=== PATIENT | male | born 1990 | race American Indian/Alaskan Native ===

== ENCOUNTER 2016-06-28 08:11 | Emergency (ER) | payer SELFPAY ==
[2016-06-28 08:25] VITALS: BP 117/77
[2016-06-28] MEDS ORDERED: DELTASONE PO ONE (09:46)
[2016-06-28] MEDS ORDERED: DUONEB 0.5 MG-3 MG/3 ML SOLN IH ONE ×2 (09:46→10:17)
--- NOTE | 2016-06-28 09:47 | Emergency Department Report ---
ED Asthma HPI - General Chief Complaint: Adult Asthma Stated Complaint: WHEEZING/SOB/PHLEM Time Seen by Provider: 06/28/16 09:45 Source: patient Mode of arrival: Ambulatory Limitations: No Limitations - History of Present Illness Initial Comments: 26-year-old male past medical history smoker, asthma presents with complaint of 2 days of wheezing. Patient states he has had slightly yellowish greenish sputum, denies fever or chills. speaking in full sentences, patient has audible wheezing. Denies any chest pain, no palpitations, states he feels chest tightness consistent with prior episodes of asthma. Patient states it has been a long time since he was hospitalized for asthma. Patient states he does not currently have an albuterol inhaler. MD Complaint: wheezing Onset/Timin -: days(s) Asthma History: history of prior ED visit Severity: mild Context: recent URI, ran out of meds Associated Symptoms: productive cough Treatments Prior to Arrival: inhaled bronchodilator - Related Data Previous Rx's Medication Instructions Recorded Last Taken Type Amoxicillin/K Clav Tab [Augmentin 1 tab PO Q12HR #20 tab 12/14/15 Unknown Rx 875 mg] Fluticasone [Flonase] 1 spray NS QDAY #1 bottle 12/14/15 Unknown Rx predniSONE [Deltasone] 50 mg PO QDAY #5 tab 12/14/15 Unknown Rx ALBUTEROL Inhaler [ProAir HFA 2 puff IH QID PRN #1 inhalation 06/28/16 Unknown Rx Inhaler] Azithromycin [Zithromax Z-HERNANDEZ] 250 mg PO QDAY #6 tablet 06/28/16 Unknown Rx predniSONE [Deltasone] 40 mg PO QDAY #10 tab 06/28/16 Unknown Rx Allergies Allergy/AdvReac Type Severity Reaction Status Date / Time No Known Allergies Allergy Verified 12/14/15 07:52 ED Review of Systems ROS: Stated complaint: WHEEZING/SOB/PHLEM Other details as noted in HPI Constitutional: denies: chills, fever Eyes: denies: eye pain, eye discharge, vision change ENT: denies: ear pain, throat pain Respiratory: wheezing. denies: cough, shortness of breath Cardiovascular: denies: chest pain, palpitations Endocrine: no symptoms reported Gastrointestinal: denies: abdominal pain, nausea, diarrhea Genitourinary: denies: urgency, dysuria Musculoskeletal: denies: back pain, joint swelling, arthralgia Skin: denies: rash, lesions Neurological: denies: headache, weakness, paresthesias Psychiatric: denies: anxiety, depression Hematological/Lymphatic: denies: easy bleeding, easy bruising ED Past Medical Hx - Past Medical History Previous Medical History?: Yes Hx Asthma: Yes - Surgical History Past Surgical History?: No - Social History Smoking Status: Current Every Day Smoker Substance Use Type: Alcohol, Prescribed - Medications Home Medications: Home Medications Medication Instructions Recorded Confirmed Last Taken Type Amoxicillin/K Clav Tab [Augmentin 1 tab PO Q12HR #20 tab 12/14/15 Unknown Rx 875 mg] Fluticasone [Flonase] 1 spray NS QDAY #1 bottle 12/14/15 Unknown Rx predniSONE [Deltasone] 50 mg PO QDAY #5 tab 12/14/15 Unknown Rx ALBUTEROL Inhaler [ProAir HFA 2 puff IH QID PRN #1 inhalation 06/28/16 Unknown Rx Inhaler] Azithromycin [Zithromax Z-HERNANDEZ] 250 mg PO QDAY #6 tablet 06/28/16 Unknown Rx predniSONE [Deltasone] 40 mg PO QDAY #10 tab 06/28/16 Unknown Rx ED Physical Exam - General Limitations: No Limitations General appearance: alert, in no apparent distress - Head Head exam: Present: atraumatic, normocephalic - Eye Eye exam: Present: normal appearance, PERRL, EOMI - ENT ENT exam: Present: mucous membranes moist - Neck Neck exam: Present: normal inspection - Respiratory Respiratory exam: Present: wheezes (patient wheezing bilaterally on auscultation ). Absent: respiratory distress - Cardiovascular Cardiovascular Exam: Present: regular rate, normal rhythm. Absent: systolic murmur, diastolic murmur, rubs, gallop - GI/Abdominal GI/Abdominal exam: Present: soft, normal bowel sounds - Rectal Rectal exam: Present: deferred - Extremities Exam Extremities exam: Present: normal inspection - Back Exam Back exam: Present: normal inspection - Neurological Exam Neurological exam: Present: alert, oriented X3 - Psychiatric Psychiatric exam: Present: normal affect, normal mood - Skin Skin exam: Present: warm, dry, intact, normal color. Absent: rash ED Course Vital Signs 06/28/16 06/28/16 06/28/16 08:22 10:04 10:05 Temperature 98.4 F Pulse Rate 65 Pulse Rate [ 73 72 Anterior Bilateral Throughout] Respiratory 20 Rate Respiratory 17 19 Rate [Anterior Bilateral Throughout] Blood Pressure 117/77 O2 Sat by Pulse 96 Oximetry 06/28/16 10:29 Temperature Pulse Rate Pulse Rate [ 72 Anterior Bilateral Throughout] Respiratory Rate Respiratory 19 Rate [Anterior Bilateral Throughout] Blood Pressure O2 Sat by Pulse Oximetry ED Medical Decision Making - Medical Decision Making A/P: Reactive airway disease, asthma exacerbation 1-refill on albuterol inhaler, 5 day course of prednisone 2-as patient is currently a smoker with complaint of productive cough will cover empirically with azithromycin 3-follow-up with primary care doctor 4-patient states he feels significantly better after 2 nebulizer treatments, oxygen saturation 96% after walking around in ED on room air Critical care attestation.: If time is entered above; I have spent that time in minutes in the direct care of this critically ill patient, excluding procedure time. ED Disposition Clinical Impression: Reactive airway disease Qualifiers: Asthma severity: moderate persistent Asthma complication type: with acute exacerbation Qualified Code(s): J45.41 - Moderate persistent asthma with (acute ) exacerbation Disposition: DISCHARGED TO HOME OR SELFCARE Is pt being admited?: No Does the pt Need Aspirin: No Condition: Stable Instructions: Asthma (ED), Reactive Airways Disease (ED) Prescriptions: ALBUTEROL Inhaler [ProAir HFA Inhaler] 2 puff IH QID PRN #1 inhalation PRN Reason: Wheezing Azithromycin [Zithromax Z-HERNANDEZ] 250 mg PO QDAY #6 tablet predniSONE [Deltasone] 40 mg PO QDAY #10 tab Referrals: [facility] [place] [Outside] - 3-5 Days JAROD DEVLIN MD [Staff Physician] - 3-5 Days Forms: Work/School Release Form(ED) Time of Disposition: 10:38
== END 2016-06-28 10:50 | disposition home or self-care (01) ==
LOC: ED 08:11
DX: J45.41 Moderate persistent asthma with (acute) exacerbation (principal); F17.200 Nicotine dependence, unspecified, uncomplicated
CPT/HCPCS: 94640; 99283; J7512